=== PATIENT | female | born 1985 | race Caucasian/White ===

== ENCOUNTER → 2016-09-26 | Outpatient (REF) ==
[~2016-09-26] MED LIST: ATIVAN 0.50.5 MG/TAB PO; IBU800 M1 PO; MOTRIN 600600 MG/TAB PO; MOTRIN 800800 MG/TAB PO; NUVARING1 ICR VG; PERCOCET 325 MG1 TA2 PO; PRENATAL1 TA1 PO; PRILOSEC 20MG20 MG PO; ZOLOFT 50MG50 MG PO
== END ==
LOC: WSOH 09:20
DX: Z23 Encounter for immunization (principal)

== ENCOUNTER 2016-11-23 17:14 | Inpatient (IN) | payer OTHER ==
[~2016-11-23] VITALS: Ht 160 cm; Wt 63.2 kg
[2016-11-23] VITALS (24 sets, daily range): BP systolic 72–119; BP diastolic 41–78; PULSE 53–87; TEMP 97.6–98.1
[~2016-11-23 17:14] MED LIST changes: -IBU800 M1 PO; -ZOLOFT 50MG50 MG PO
[2016-11-23] MEDS ORDERED: ZOLOFT 50MG50 MG PO (17:35)
[2016-11-23 18:21] LABS: BASO % 0.3 % (0.0-2.0); EOS % 0.3 % (0-4.0); GRAN # 6.6 (1.4-6.5); GRAN % 74.4 % (42.2-75.2); LYMPH # 1.7 (1.2-3.4); LYMPH % 18.5 % (20.0-51.0); MEAN CELL VOLUME 89 fl (80.0-100.0); MEAN CORPUSCULAR HGB CONC 34 g/dl (33.0-37.0); MEAN PLATELET VOLUME 11.8 fl (7.4-10.4); MONO # 0.5 (0.1-0.6); MONO % 5.8 % (1.7-9.3); PLATELET COUNT 156 K/mm3 (130-400); RED BLOOD COUNT 3.78 M/mm3 (4.10-5.30); REDCELL DISTRIBUTION WIDTH-CV 13.5 % (11.5-14.5); WHITE BLOOD COUNT 8.9 K/mm3 (4.8-10.8)
[2016-11-23 18:22] LABS: HEMATOCRIT 33.7 % (37.0-47.0); HEMOGLOBIN 11.4 g/dl (12.5-16.0); MEAN CORPUSCULAR HEMOGLOBIN 30 pg (27.0-31.0)
[2016-11-24 00:20] VITALS: BP 104/57; PULSE 62; TEMP 98.5
[2016-11-24 00:50] VITALS: BP 104/59; PULSE 71
[2016-11-24 01:54] VITALS: BP 99/55; PULSE 84
[2016-11-24 05:05] VITALS: BP 96/57; PULSE 57; TEMP 97.7
[2016-11-24 21:00] VITALS: BP 103/65; PULSE 66; TEMP 97.5
[2016-11-25] MEDS ORDERED: PERCOCET 325 MG1 TA2 PO (07:16)
[2016-11-25] MEDS ORDERED: IBU800 M1 PO (07:16)
[2016-11-25 07:29] VITALS: BP 113/78; PULSE 67; TEMP 97.2
== END 2016-11-25 12:40 | disposition home or self-care (01) | DRG 775 ==
LOC: LDRO 17:14 → LDR 17:54 → OB 17:54
PROVIDERS: Student in an Organized Health Care Education/Training Program
PROC: 10E0XZZ Delivery of Products of Conception, External Approach (ICD-10-PCS; principal; 2016-11-23)
DX: O48.0 Post-term pregnancy (principal); O99.824 Streptococcus B carrier state complicating childbirth; Z3A.40 40 weeks gestation of pregnancy; Z37.0 Single live birth
CPT/HCPCS: J2540; J2590; J2795; J7120

== ENCOUNTER → 2017-01-29 | Outpatient (REF) ==
[~2017-01-29] MED LIST changes: +IBU800 M1 PO; +ZOLOFT 50MG50 MG PO
== END ==
LOC: WSOH 08:45
DX: Z02.89 Encounter for other administrative examinations (principal)
CPT/HCPCS: G0463

== ENCOUNTER → 2017-05-14 | Outpatient (REF) | LOC: WSOH 17:45 | DX: Z02.89 Encounter for other administrative examinations (principal) ==

== ENCOUNTER 2019-01-31 13:39 | Outpatient (RCR) | payer OTHER | END 2019-05-01 | disposition home or self-care (01) | LOC: WSOH | DX: S61.230A Puncture wound without foreign body of right index finger without damage to nail, initial encounter (principal); Z77.21 Contact with and (suspected) exposure to potentially hazardous body fluids; W46.0XXA Contact with hypodermic needle, initial encounter; Y92.234 Operating room of hospital as the place of occurrence of the external cause; Y99.0 Civilian activity done for income or pay; Z79.899 Other long term (current) drug therapy; F32.9 Major depressive disorder, single episode, unspecified ==

== ENCOUNTER → 2021-09-16 | Outpatient (CLI) | payer OTHER | LOC: COL.RAD 11:30 → COL.LAB 11:37 → COL.RAD 11:37 | DX: E03.9 Hypothyroidism, unspecified (principal) ==

== ENCOUNTER → 2023-09-02 | Outpatient (CLI) | payer OTHER | LOC: CANSCHCLI → MC.RAD 08:56 | DX: Z12.31 Encounter for screening mammogram for malignant neoplasm of breast (principal); N63.10 Unspecified lump in the right breast, unspecified quadrant ==

== ENCOUNTER → 2023-09-04 | Outpatient (CLI) | payer OTHER | LOC: MC.RAD 07:58 | DX: N63.14 Unspecified lump in the right breast, lower inner quadrant (principal) ==